=== PATIENT | male | born 1950 | race Two or more races ===

== ENCOUNTER 2023-10-06 13:17 | Inpatient (IN) | payer OTHER, MEDICAID ==
[~2023-10-06] VITALS: Ht 165.1 cm; Wt 70.1 kg
[~2023-10-06 13:17] MED LIST: AML5T PO; ASPI1TAB38 PO; ATO40T PO; FURO20TA3 PO; METF-370 PO; PHEN100C PO
[2023-10-06] MEDS: HYDROcodone-ACET 5/325MG TAB PO ONE (15:59)
[2023-10-06] MEDS: SODIUM CHLORIDE 0.9% 1,000 ML IV SCH (17:20)
[2023-10-06] MEDS: MORPHINE SULFATE 4 MG/ML SYR/VIAL IM ONE (17:51)
[2023-10-06] MEDS ORDERED: HYDROcodone-ACET 5/325MG TAB PO PRN (18:30)
[2023-10-06] MEDS ORDERED: ACETAMINOPHEN 325 MG TAB PO PRN (18:30)
[2023-10-06] MEDS ORDERED: ONDANSETRON HCL 4 MG/2 ML VIAL IV PRN (18:30)
[2023-10-06] MEDS ORDERED: DEXTROSE (50%) 50ML SYRG IV PRN (18:30)
[2023-10-06] MEDS ORDERED: ASPI-628 PO (18:40)
[2023-10-06] MEDS ORDERED: AMLO1TAB23 PO (18:40)
[2023-10-06] MEDS ORDERED: LOSA50TA46 PO (18:40)
[2023-10-06] MEDS ORDERED: PRAV20TA3 PO (18:40)
[2023-10-06] MEDS ORDERED: CHOL20002 PO (18:40)
[2023-10-06 18:56] LABS: Basophils # (auto) 0 10 ^3/uL (0-0.2); Basophils % (auto) 0.3 % (0.0-2.0); Eosinophils # (auto) 0.2 10 ^3/uL (0-0.8); Eosinophils % (auto) 1.5 % (0.0-7.0); Hematocrit 31.4 % (41.0-53.0); Hemoglobin 9.9 g/dL (13.5-17.5); Lymphocytes # (auto) 2.3 10 ^3/uL (0.4-5.4); Lymphocytes % (auto) 16.6 % (10.0-50.0); Mean Corpuscular Hgb Conc. 31.5 g/dL (32.0-36.0); Mean Corpuscular Volume 98.5 fL (80.0-100.0); Monocytes # (auto) 0.7 10 ^3/uL (0-1.3); Monocytes % (auto) 5.2 % (0.0-12.0); Neutrophils # (auto) 10.6 10 ^3/uL (1.6-8.6); Neutrophils % (auto) 76.4 % (37.0-80.0); Nucleated Red Blood Cells % 0.1 %; Red Blood Cells 3.18 10^6/uL (4.5-5.90); Red Cell Distribution Width 14.4 % (11.8-14.3); White Blood Cell 13.9 10^3/uL (4.4-10.8)
[2023-10-06] MEDS ORDERED: ALBUTEROL SULF 2.5 MG/0.5ML(0.5%) NEB SOLN NEB PRN (19:00)
[2023-10-06] MEDS ORDERED: IPRATROPIUM BROM 0.5 MG/2.5ML INH SOL NEB PRN (19:00)
[2023-10-06 19:13] LABS: INR 1.05 (0.9-1.15)
[2023-10-06 19:23] LABS: Albumin 4.2 g/dL (3.2-4.8); Alkaline Phosphatase 103 U/L (46-116); Anion Gap 10 (5-15); Aspartate Aminotransferase 9 U/L (13-40); BUN/Creatinine Ratio 21.9 (10.0-20.0); Blood Urea Nitrogen 34 mg/dL (9-23); Carbon Dioxide 18 mmol/L (20-30); Chloride 111 mmol/L (98-107); Glucose 129 mg/dL (74-106); Potassium 4.3 mmol/L (3.5-5.1); Sodium 139 mmol/L (136-145)
[2023-10-06 19:24] LABS: Bilirubin, Total 0.6 mg/dL (0.2-1.0); Total Protein 7.4 g/dL (5.7-8.2)
[2023-10-06 19:28] LABS: Alanine Aminotransferase < 9 U/L (7-40)
[2023-10-06 19:57] VITALS: BP 144/72; PULSE 72; RESP 18; TEMP 98.9; O2SAT 100
[2023-10-06 20:02] VITALS: O2SAT 100
[2023-10-07] VITALS (9 sets, daily range): BP systolic 124–151; BP diastolic 59–95; PULSE 73–97; RESP 16–18; TEMP 98.1–98.6; O2SAT 95–97
[2023-10-07] MEDS: InsuLIN REG 1unit/0.01ml Soln (100units/ml) SC SCH
[2023-10-07] MEDS: ACCU-CHEK COMFORT CURVE STRIP VI SCH
[2023-10-07] MEDS: ceFAZolin 1GM/50ML 50 ML IV SCH (01:47)
[2023-10-07] MEDS: PRAVASTATIN SODIUM 20 MG TAB PO SCH (01:48)
[2023-10-07] MEDS: HYDROmorphone HCL 2 MG/ML VL/or syr IV PRN (01:55)
[2023-10-07 05:21] LABS: Basophils # (auto) 0.1 10 ^3/uL (0-0.2); Eosinophils # (auto) 0.2 10 ^3/uL (0-0.8); Lymphocytes # (auto) 2.4 10 ^3/uL (0.4-5.4); Monocytes # (auto) 0.8 10 ^3/uL (0-1.3); Monocytes % (auto) 7.5 % (0.0-12.0); Nucleated Red Blood Cells % 0.1 %
[2023-10-07 05:24] LABS: Basophils % (auto) 0.8 % (0.0-2.0); Eosinophils % (auto) 2.3 % (0.0-7.0); Hemoglobin 9.9 g/dL (13.5-17.5); Lymphocytes % (auto) 23.4 % (10.0-50.0); Mean Corpuscular Volume 94.1 fL (80.0-100.0); Neutrophils # (auto) 6.8 10 ^3/uL (1.6-8.6); Red Blood Cells 3.08 10^6/uL (4.5-5.90); Red Cell Distribution Width 13.9 % (11.8-14.3); White Blood Cell 10.3 10^3/uL (4.4-10.8)
[2023-10-07 05:44] LABS: Albumin 4.1 g/dL (3.2-4.8); Alkaline Phosphatase 100 U/L (46-116); Anion Gap 9 (5-15); Aspartate Aminotransferase < 8 U/L (13-40); BUN/Creatinine Ratio 20.2 (10.0-20.0); Blood Urea Nitrogen 33 mg/dL (9-23); Carbon Dioxide 20 mmol/L (20-30); Chloride 113 mmol/L (98-107); Glucose 123 mg/dL (74-106); Potassium 4.2 mmol/L (3.5-5.1); Sodium 142 mmol/L (136-145)
[2023-10-07 05:45] LABS: Alanine Aminotransferase < 9 U/L (7-40); Bilirubin, Total 0.4 mg/dL (0.2-1.0); Total Protein 6.9 g/dL (5.7-8.2)
[2023-10-07] MEDS ORDERED: PANTOPRAZOLE 40 MG/10 ML VIAL INJ IV SCH (10:00)
[2023-10-07] MEDS: LOSARTAN POTASSIUM 50 MG TAB PO SCH (10:25)
[2023-10-07] MEDS: amLODIPine BESYLATE 5 MG TAB PO SCH (10:25)
[2023-10-07] MEDS: CHOLECALCIFEROL (VITD3) 2,000 UNIT CAP/TAB PO SCH (10:26)
[2023-10-07] MEDS ORDERED: DAPA1TAB4 PO (12:38)
[2023-10-07] MEDS ORDERED: ALBUAER3 IN (12:38)
[2023-10-07] MEDS ORDERED: HYDR-4296 PO (12:38)
[2023-10-07 15:18] LABS: Urine Bacteria NONE SEEN /hpf (None Seen); Urine Blood Negative /uL (Negative); Urine Clarity Clear (Clear); Urine Color Yellow (Yellow); Urine Protein, UAD 2+ (Negative); Urine Specific Gravity 1.019 (1.001-1.035); Urine Urobilinogen Normal (Negative); Urine WBC <1 /hpf (0 - 3); Urine pH 5.5 (5.0-8.0)
[2023-10-07] MEDS: DOCUSATE SOD 100 MG CAP PO PRN (21:03)
[2023-10-07] MEDS: ENOXAPARIN SOD 40 MG/0.4 ML SYRINGE SC SCH (21:04)
[2023-10-08] VITALS (15 sets, daily range): BP systolic 107–174; BP diastolic 68–98; PULSE 77–100; RESP 12–20; TEMP 97.7–98.9; O2SAT 96–100
[2023-10-08] MEDS: hydrALAZINE HCL 20 MG/ML VL IV PRN (04:32)
[2023-10-08 07:00] LABS: Basophils # (auto) 0.1 10 ^3/uL (0-0.2); Basophils % (auto) 0.6 % (0.0-2.0); Eosinophils # (auto) 0.5 10 ^3/uL (0-0.8); Eosinophils % (auto) 3.5 % (0.0-7.0); Hematocrit 28.1 % (41.0-53.0); Lymphocytes # (auto) 1.6 10 ^3/uL (0.4-5.4); Lymphocytes % (auto) 11.6 % (10.0-50.0); Mean Corpuscular Hemoglobin 31.3 pg (28.0-32.0); Mean Corpuscular Hgb Conc. 32.2 g/dL (32.0-36.0); Mean Corpuscular Volume 97.2 fL (80.0-100.0); Monocytes # (auto) 0.9 10 ^3/uL (0-1.3); Monocytes % (auto) 6.3 % (0.0-12.0); Neutrophils # (auto) 10.5 10 ^3/uL (1.6-8.6); Red Blood Cells 2.89 10^6/uL (4.5-5.90); Red Cell Distribution Width 14.3 % (11.8-14.3); White Blood Cell 13.5 10^3/uL (4.4-10.8)
[2023-10-08] MEDS: TETRACAINE 1% INJ 2 ML VIAL IJ ONE (07:05)
[2023-10-08 07:06] LABS: Albumin 3.8 g/dL (3.2-4.8); Alkaline Phosphatase 90 U/L (46-116); Anion Gap 8 (5-15); Aspartate Aminotransferase 12 U/L (13-40); BUN/Creatinine Ratio 18.8 (10.0-20.0); Blood Urea Nitrogen 33 mg/dL (9-23); Calcium 8.5 mg/dL (8.5-10.1); Carbon Dioxide 19 mmol/L (20-30); Chloride 112 mmol/L (98-107); Glucose 181 mg/dL (74-106); Potassium 4.8 mmol/L (3.5-5.1); Sodium 139 mmol/L (136-145)
[2023-10-08 07:07] LABS: Bilirubin, Total 0.4 mg/dL (0.2-1.0); Total Protein 6.3 g/dL (5.7-8.2)
[2023-10-08 07:12] LABS: Alanine Aminotransferase < 9 U/L (7-40)
[2023-10-08] MEDS ORDERED: fentaNYL CITRATE 100 MCG/2 ML VL ONE (07:12)
[2023-10-08] MEDS ORDERED: MORPHINE SULF PF 5 MG/10 ML VIAL ONE (07:12)
[2023-10-08] MEDS ORDERED: PHENYLEPHRINE HCL 10 MG/ML VL ONE (07:13)
[2023-10-08] MEDS ORDERED: ONDANSETRON HCL 4 MG/2 ML VIAL ONE (07:13)
[2023-10-08] MEDS ORDERED: PROPOFOL 10 MG/ML 20 ML IV ONE (07:13)
[2023-10-08] MEDS ORDERED: KETAMINE 50mg/ML 1ml syringe ONE (07:13)
[2023-10-08] MEDS ORDERED: ePHEDrine SULFATE 50 MG/ML AMP ONE (07:13)
[2023-10-08] MEDS ORDERED: GLYCOPYRROLATE 0.2 MG/ML 1ML VIAL ONE (07:13)
[2023-10-08] MEDS ORDERED: MIDAZOLAM HCL 2MG/2ML 2ml VIAL (1mg/ml) ONE (07:14)
[2023-10-08] MEDS: ceFAZolin 1GM/50ML 50 ML IV ONE (07:14)
[2023-10-08] MEDS: TRANEXAMIC ACID 20 ML ONE (07:38)
[2023-10-08] MEDS: ACCU-CHEK COMFORT CURVE STRIP VI ONE (08:45)
[2023-10-08] MEDS ORDERED: ONDANSETRON HCL 4 MG/2 ML VIAL IV PRN (08:45)
[2023-10-08] MEDS ORDERED: diphenhdrAMINE HCL 50 MG/1 ML VL IV PRN (08:45)
[2023-10-08] MEDS ORDERED: NALOXONE HCL 0.4 MG/ML VIAL IV PRN (08:45)
[2023-10-08] MEDS ORDERED: DexAMETHasone SOD PHOS 10MG/1ML VIAL INJ IV PRN (08:45)
[2023-10-08] MEDS: SODIUM CHLOR 0.9% PF (SALINE LOCK) 10ML VIAL/SYR IV SCH (14:00)
[2023-10-08] MEDS: ceFAZolin 2 GM/D5W50ml 50 ML IV SCH (16:08)
[2023-10-08] MEDS: LACTATED RINGER'S 1,000 ML IV SCH (17:58)
[2023-10-08] MEDS: ENOXAPARIN SOD 40 MG/0.4 ML SYRINGE SC SCH (20:36)
[2023-10-08] MEDS ORDERED: METOCLOPRAMIDE HCL 5MG/ml INJ 2ml VIAL IV PRN (21:30)
[2023-10-08] MEDS ORDERED: ENOXAPARIN SOD 40 MG/0.4 ML SYRINGE SC SCH (22:00)
[2023-10-08] MEDS: KETOROLAC TROMETH 30 MG/ML 1ML VIAL IV PRN (22:57)
[2023-10-09] VITALS (23 sets, daily range): BP systolic 111–164; BP diastolic 54–104; PULSE 59–105; RESP 16–19; TEMP 97.6–98.7; O2SAT 95–99
[2023-10-09 06:13] LABS: Basophils # (auto) 0 10 ^3/uL (0-0.2); Eosinophils # (auto) 0 10 ^3/uL (0-0.8); Hemoglobin 7.4 g/dL (13.5-17.5); Lymphocytes # (auto) 0.9 10 ^3/uL (0.4-5.4); Monocytes # (auto) 0.9 10 ^3/uL (0-1.3); Nucleated Red Blood Cells % 0.1 %
[2023-10-09 06:15] LABS: Basophils % (auto) 0.2 % (0.0-2.0); Hematocrit 22.5 % (41.0-53.0); Lymphocytes % (auto) 8.7 % (10.0-50.0); Mean Corpuscular Hemoglobin 31.4 pg (28.0-32.0); Mean Corpuscular Hgb Conc. 33.1 g/dL (32.0-36.0); Monocytes % (auto) 8.9 % (0.0-12.0); Neutrophils # (auto) 8.5 10 ^3/uL (1.6-8.6); Neutrophils % (auto) 82.2 % (37.0-80.0); Red Blood Cells 2.37 10^6/uL (4.5-5.90); Red Cell Distribution Width 14.4 % (11.8-14.3); White Blood Cell 10.3 10^3/uL (4.4-10.8)
[2023-10-09 06:30] LABS: Albumin 3.5 g/dL (3.2-4.8); Alkaline Phosphatase 83 U/L (46-116); Anion Gap 9 (5-15); Aspartate Aminotransferase 11 U/L (13-40); BUN/Creatinine Ratio 25.7 (10.0-20.0); Carbon Dioxide 18 mmol/L (20-30); Chloride 111 mmol/L (98-107); Glucose 184 mg/dL (74-106); Magnesium 2.2 mg/dL (1.6-2.6); Potassium 4.8 mmol/L (3.5-5.1); Sodium 138 mmol/L (136-145)
[2023-10-09 06:31] LABS: Bilirubin, Total 0.3 mg/dL (0.2-1.0); Total Protein 5.8 g/dL (5.7-8.2)
[2023-10-09 06:36] LABS: Alanine Aminotransferase < 9 U/L (7-40); Blood Urea Nitrogen 47 mg/dL (9-23)
[2023-10-09] MEDS: PHENYTOIN SODIUM 100 MG CAP PO SCH (09:24)
[2023-10-09] MEDS ORDERED: SODI650T PO (11:13)
[2023-10-09] MEDS ORDERED: PATI1POW PO (11:13)
[2023-10-09] MEDS: HYDROcodone-ACET 10/325MG TAB PO PRN (16:50)
[2023-10-10 05:22] VITALS: BP 131/89; PULSE 104; RESP 17; TEMP 98.5; O2SAT 95
[2023-10-10 06:12] LABS: Basophils # (auto) 0.1 10 ^3/uL (0-0.2); Basophils % (auto) 0.6 % (0.0-2.0); Eosinophils # (auto) 0.5 10 ^3/uL (0-0.8); Eosinophils % (auto) 5.1 % (0.0-7.0); Hematocrit 25.8 % (41.0-53.0); Hemoglobin 8.5 g/dL (13.5-17.5); Lymphocytes # (auto) 1.8 10 ^3/uL (0.4-5.4); Lymphocytes % (auto) 17.5 % (10.0-50.0); Mean Corpuscular Hemoglobin 31.7 pg (28.0-32.0); Mean Corpuscular Volume 96.1 fL (80.0-100.0); Monocytes # (auto) 0.8 10 ^3/uL (0-1.3); Monocytes % (auto) 7.8 % (0.0-12.0); Neutrophils # (auto) 7.2 10 ^3/uL (1.6-8.6); Red Blood Cells 2.69 10^6/uL (4.5-5.90); Red Cell Distribution Width 14.7 % (11.8-14.3); White Blood Cell 10.4 10^3/uL (4.4-10.8)
[2023-10-10 06:34] LABS: Alkaline Phosphatase 92 U/L (46-116); Anion Gap 8 (5-15); Aspartate Aminotransferase 24 U/L (13-40); BUN/Creatinine Ratio 24.8 (10.0-20.0); Blood Urea Nitrogen 39 mg/dL (9-23); Calcium 8.6 mg/dL (8.5-10.1); Carbon Dioxide 20 mmol/L (20-30); Chloride 113 mmol/L (98-107); Glucose 91 mg/dL (74-106); Potassium 4.5 mmol/L (3.5-5.1); Sodium 141 mmol/L (136-145)
[2023-10-10 06:35] LABS: Albumin 3.7 g/dL (3.2-4.8); Bilirubin, Total 0.4 mg/dL (0.2-1.0); Total Protein 6.2 g/dL (5.7-8.2)
[2023-10-10 06:41] LABS: Alanine Aminotransferase < 9 U/L (7-40)
[2023-10-10 08:00] VITALS: PULSE 65
[2023-10-10 08:20] VITALS: PULSE 98; RESP 20; O2SAT 100
[2023-10-10] MEDS ORDERED: HYDR-4902 PO (09:52)
[2023-10-10 10:47] VITALS: BP_SYST 161; BP_SYST 199; BP_DIAS 112; BP_DIAS 86; PULSE 107; RESP 20; TEMP 97.4; O2SAT 98
[2023-10-10 12:48] VITALS: BP 120/83; PULSE 101; RESP 20; TEMP 97.7; O2SAT 94
[2023-10-10 13:09] VITALS: BP 120/83; PULSE 101; RESP 20; TEMP 97.7; O2SAT 94
== END 2023-10-10 14:32 | disposition home health service (06) | DRG 480 ==
LOC: ER 13:17 → OVERFLOW 18:36 → CENTRAL 10-07 08:54 → TELE-CENTR 10-10 07:42
PROVIDERS: ADMIT Internal Medicine Pulmonary Disease; ATTEND Emergency Medicine
PROC: 0QS606Z Reposition Right Upper Femur with Intramedullary Internal Fixation Device, Open Approach (ICD-10-PCS; principal; 2023-10-08 07:19)
DX: S72.141A Displaced intertrochanteric fracture of right femur, initial encounter for closed fracture (principal); I50.33 Acute on chronic diastolic (congestive) heart failure; I13.0 Hypertensive heart and chronic kidney disease with heart failure and stage 1 through stage 4 chronic kidney disease, or unspecified chronic kidney disease; N18.4 Chronic kidney disease, stage 4 (severe); N17.9 Acute kidney failure, unspecified; G81.91 Hemiplegia, unspecified affecting right dominant side; E11.22 Type 2 diabetes mellitus with diabetic chronic kidney disease; J45.909 Unspecified asthma, uncomplicated; W01.0XXA Fall on same level from slipping, tripping and stumbling without subsequent striking against object, initial encounter; E78.5 Hyperlipidemia, unspecified; Z86.73 Personal history of transient ischemic attack (TIA), and cerebral infarction without residual deficits; Z79.4 Long term (current) use of insulin; Z79.82 Long term (current) use of aspirin; Z79.899 Other long term (current) drug therapy; Y93.89 Activity, other specified; Y92.89 Other specified places as the place of occurrence of the external cause; Y99.8 Other external cause status; Z83.3 Family history of diabetes mellitus; Z82.49 Family history of ischemic heart disease and other diseases of the circulatory system
CPT/HCPCS: 36415; 71045; 72100; 73502; 73562; 73590; 73700; 76000; 80053; 81001; 82962; 83735; 85025; 85610; 86850; 86900; 86901; 87040; 87077; 87081; 87186; 93005; 93306; 97110; 97116; 97163; 97530; G0378; J1815; J1885; J2250; J2405; J2704

== ENCOUNTER 2024-02-16 17:29 | Emergency (ER) | payer OTHER, MEDICAID ==
[~2024-02-16] VITALS: Ht 165.1 cm; Wt 63.6 kg
[~2024-02-16 17:29] MED LIST changes: +ALBUAER3 IN; -AML5T PO; +AMLO1TAB23 PO; +ASPI-628 PO; -ASPI1TAB38 PO; -ATO40T PO; +ATOR-507 PO; +CHOL20002 PO; +DAPA1TAB4 PO; +HYDR-4902 PO; +HYDR25TA88 PO; +LOSA-534 PO; +PATI1POW PO; +PRAV20TA3 PO; +SODI650T PO
[2024-02-16 17:30] VITALS: BP 143/71; PULSE 64; RESP 16; O2SAT 96
[2024-02-16 18:40] LABS: Basophils # (auto) 0.1 10 ^3/uL (0-0.2); Basophils % (auto) 0.8 % (0.0-2.0); Eosinophils # (auto) 0.6 10 ^3/uL (0-0.8); Eosinophils % (auto) 6.2 % (0.0-7.0); Hematocrit 35.3 % (41.0-53.0); Hemoglobin 11.4 g/dL (13.5-17.5); Lymphocytes # (auto) 2.1 10 ^3/uL (0.4-5.4); Lymphocytes % (auto) 23.4 % (10.0-50.0); Mean Corpuscular Hemoglobin 30.8 pg (28.0-32.0); Mean Corpuscular Hgb Conc. 32.3 g/dL (32.0-36.0); Mean Corpuscular Volume 95.2 fL (80.0-100.0); Monocytes # (auto) 0.6 10 ^3/uL (0-1.3); Monocytes % (auto) 6.3 % (0.0-12.0); Neutrophils # (auto) 5.7 10 ^3/uL (1.6-8.6); Neutrophils % (auto) 63.3 % (37.0-80.0); Nucleated Red Blood Cells % 0.1 %; Red Blood Cells 3.71 10^6/uL (4.5-5.90); White Blood Cell 9.1 10^3/uL (4.4-10.8)
[2024-02-16 19:00] LABS: Alanine Aminotransferase 16 U/L (7-40); Albumin 4.6 g/dL (3.2-4.8); Alkaline Phosphatase 119 U/L (46-116); Anion Gap 10 (5-15); Aspartate Aminotransferase < 8 U/L (13-40); BUN/Creatinine Ratio 18.8 (10.0-20.0); Bilirubin, Total 0.2 mg/dL (0.2-1.0); Blood Urea Nitrogen 35 mg/dL (9-23); Calcium 9.8 mg/dL (8.5-10.1); Carbon Dioxide 15 mmol/L (20-30); Chloride 114 mmol/L (98-107); Glucose 82 mg/dL (74-106); Potassium 5.3 mmol/L (3.5-5.1); Sodium 139 mmol/L (136-145); Total Protein 7.7 g/dL (5.7-8.2)
== END 2024-02-16 23:59 | disposition left against medical advice (07) ==
LOC: ER 17:29
DX: E87.5 Hyperkalemia (principal); J45.909 Unspecified asthma, uncomplicated; I11.0 Hypertensive heart disease with heart failure; I50.9 Heart failure, unspecified; E11.9 Type 2 diabetes mellitus without complications; E78.5 Hyperlipidemia, unspecified; I25.2 Old myocardial infarction; R56.9 Unspecified convulsions; Z86.73 Personal history of transient ischemic attack (TIA), and cerebral infarction without residual deficits
CPT/HCPCS: 36415; 80053; 85025